=== PATIENT | female | born 1975 | race Caucasian/White ===

== ENCOUNTER 2016-12-13 11:18 | Emergency (ER) ==
[2016-12-13 11:28] VITALS: BP 128/82; TEMP 96.5; BMI 24.2
[2016-12-13] MEDS ORDERED: GI COCKTAIL PO STA (11:37)
--- NOTE | 2016-12-13 11:40 | ED.PDOC ---
General ED Provider: Dr. MIL BRAY Chief Complaint: Abdominal Pain Stated Complaint: Was hurting in the upper stomach, had 2 episodes, has h/o gall stones Time Seen by Physician: 11:38 Mode of Arrival: Walk-In Information Source: Patient Primary Care Provider: LENARD BEAULIEU Nursing and Triage Documentation Reviewed and Agree: Yes GI Complaint Exam - Abdominal Pain Complaint/Exam Onset: Gradual Symptoms Are: Still present Initial Severity: Moderate Current Severity: Moderate Location of Pain: Diffuse Character: Reports: Dull, Burning Aggravating: Reports: Movement, Food Alleviating: Reports: None Associated Signs and Symptoms: Reports: Nausea. Denies: Diaphoresis, Fever, Cough, Chest pain, Dizziness, Back pain, Constipation, Blood in stool, Dysuria, Urinary frequency, Decreased urine output, Decreased appetite, Vaginal bleeding , Vaginal discharge, Vomiting, Diarrhea, Sore throat, Decreased activity Related History: Reports: Similar episode AAA Risk Factors: Reports: None Cardiac Risk Factors: Reports: None Ectopic Risk Factors: Reports: None Ovarian Torsion Risk Factors: Reports: None Surgical Obstruction Risk Factors: Reports: None Related Surgical History: Reports: None. Denies: Cholecystectomy, Appendectomy Abdominal Findings: Absent: Pulsatile mass, Abdominal distention, Unequal femoral pulses Differential Diagnoses: Pancreatitis, GB, PUD Review of Systems - Review Of Systems Constitutional: Reports: No symptoms Eyes: Reports: No symptoms Ears, Nose, Mouth, Throat: Reports: No symptoms Respiratory: Reports: No symptoms Cardiac: Reports: No symptoms GI: Reports: Abdominal pain : Reports: No symptoms Musculoskeletal: Reports: No symptoms Skin: Reports: No symptoms Neurological: Reports: No symptoms Endocrine: Reports: No symptoms Hematologic/Lymphatic: Reports: No symptoms All Other Systems: Reviewed and Negative Past Medical History - Past Medical History Previously Healthy: No Endocrine: Reports: None Cardiovascular: Reports: None Respiratory: Reports: None Hematological: Reports: None Gastrointestinal: Reports: None Genitourinary: Reports: None Neuro/Psych: Reports: None Musculoskeletal: Reports: None Cancer: Reports: None Last Menstrual Period: 11/27/16 - Surgical History General Surgical History: Reports: Tubal ligation - Family History Family History: Reports: None - Social History Smoking Status: Heavy tobacco smoker Smoking Cessation Counseling Time: > 10 min Hx Substance Use: No Alcohol Screening: Occasionally - Immunizations Tetanus Shot up to Date: No Physical Exam - Physical Exam Appearance: Well-appearing, No pain distress, Well-nourished Eyes: LUCRECIA, EOMI, Conjunctiva clear ENT: Ears normal, Nose normal, Oropharynx normal Respiratory: Airway patent, Breath sounds clear, Breath sounds equal, Respirations nonlabored Cardiovascular: RRR, Pulses normal, No rub, No murmur GI/: Soft, Tender (epigastric) Musculoskeletal: Normal strength, ROM intact, No edema, No calf tenderness Skin: Warm, Dry, Normal color Neurological: Sensation intact, Motor intact, Reflexes intact, Cranial nerves intact, Alert, Oriented Psychiatric: Affect appropriate, Mood appropriate Interpretation - Radiology Interpretation Radiology Interpretation By: Radiologist Radiology Results: Positive Exam Interpreted: CT Scan Critical Care Note - Critical Care Note Total Time (mins): 0 Course - Course Hematology/Chemistry: 12/13/16 11:40 12/13/16 11:40 Orders, Labs, Meds: Lab Review 12/13/16 12/13/16 11:40 12:25 WBC 9.39 RBC 4.70 Hgb 14.7 Hct 42.9 MCV 91.3 MCH 31.3 H MCHC 34.3 RDW Coeff of Cal 12.8 Plt Count 337 Immature Gran % (Auto) 0.3 Neut % (Auto) 70.9 Lymph % (Auto) 21.1 [place] % (Auto) 6.3 Eos % (Auto) 1.1 Baso % (Auto) 0.3 Immature Gran # (Auto) 0.0 Neut # 6.7 Lymph # 2.0 [place] # 0.6 Eos # 0.1 Baso # 0.0 Sodium 139 Potassium 4.0 Chloride 103 Carbon Dioxide 25 Anion Gap 15.0 BUN 9 Creatinine 0.75 Estimated GFR (MDRD) 86.00 BUN/Creatinine Ratio 12.00 Glucose 95 Calcium 9.7 Total Bilirubin 0.30 AST 64 H ALT 36 Alkaline Phosphatase 93 Total Protein 7.3 Albumin 4.1 Globulin 3.2 Albumin/Globulin Ratio 1.28 Amylase 31 Lipase 66 Urine Test Negative Orders Category Date Time Status AMYLASE Stat LAB 12/13/16 11:40 Completed CBC W/ AUTO DIFF Stat LAB 12/13/16 11:40 Completed COMPREHENSIVE METABOLIC PANEL Stat LAB 12/13/16 11:40 Completed LIPASE Stat LAB 12/13/16 11:40 Completed URINE Stat LAB 12/13/16 12:25 Completed Mag-Al Plus//Lidocaine [Gi Cocktail] MEDS 12/13/16 11:37 Discontinued 30 ml PO ONCE STA CT ABDOMEN/PELVIS WO CONTRAST Stat RADS 12/13/16 11:37 Taken Medications Discontinued Medications Generic Name Dose Route Start Last Admin Trade Name Kayla PRN Reason Stop Dose Admin Al Hydroxide/Mg Hydroxide 30 ml 12/13/16 11:37 12/13/16 12:13 Gi Cocktail PO 12/13/16 11:38 30 ml ONCE STA Administration Vital Signs: Temp Pulse Resp BP Pulse Ox 12/13/16 11:21 96.5 F L 62 16 128/82 97 Departure - Departure Time of Disposition: 13:01 Disposition: HOME SELF-CARE Discharge Problem: Abdominal pain Cholelithiasis Qualifiers: Cholelithiasis location: gallbladder Cholecystitis presence: without cholecystitis Biliary obstruction: without biliary obstruction Qualifier Code: ( K80.20) Calculus of gallbladder without cholecystitis without obstruction Instructions: Peptic Ulcer (ED), Gallstones (ED) Condition: Stable Pt referred to PMD for follow-up: Yes Additional Instructions: Needs out patient evaluation with U/S discussed the findings with patient f/u at [facility] Prescriptions: Ranitidine HCl [Zantac] 150 mg PO BIDAC #20 tablet Allergies/Adverse Reactions: Allergies No Known Allergies Allergy (Unverified 12/13/16 11:29) Home Medications: Ambulatory Orders Metoprolol Tartrate [Lopressor] 25 mg PO DAILY 12/13/16 Ranitidine HCl [Zantac] 150 mg PO BIDAC #20 tablet 12/13/16 Disposition Discussed With: Patient
[2016-12-13 11:51] LABS: BASOPHILS % (AUTO) 0.3 % (0.0-3.0); EOSINOPHILS # (AUTO) 0.1 K/ul (0.0-0.7); EOSINOPHILS % (AUTO) 1.1 % (0.0-7.0); HEMATOCRIT 42.9 % (37.0-47.0); HEMOGLOBIN 14.7 g/dl (12.0-16.0); IMMATURE GRANULOCYTE % (AUTO) 0.3 % (0.0-5.0); LYMPHOCYTES % (AUTO) 21.1 (10.0-50.0); MEAN CORPUSCULAR HEMOGLOBIN 31.3 pg (27.0-31.0); MEAN CORPUSCULAR HGB CONC 34.3 (31.8-35.4); MEAN CORPUSCULAR VOLUME 91.3 fl (81.0-99.0); MONOCYTES # (AUTO) 0.6 K/uL (0.4-2.0); MONOCYTES % (AUTO) 6.3 (0-10); NEUTROPHILS # (AUTO) 6.7 K/ul (2.0-6.9); NEUTROPHILS % (AUTO) 70.9; PLATELET COUNT 337 10^3/uL (140-440); WHITE BLOOD COUNT 9.39 K/ul (4.6-10.2)
[2016-12-13 12:11] LABS: ALBUMIN 4.1 g/dL (3.4-5.0); ALBUMIN/GLOBULIN RATIO 1.28; BILIRUBIN,TOTAL 0.3 mg/dL (0.00-1.20); CALCIUM 9.7 mg/dL (8.2-10.2); CREATININE 0.75 mg/dL (0.60-1.30); TOTAL PROTEIN 7.3 g/dL (6.4-8.2)
[2016-12-13 12:33] LABS: URINE PREGNANCY INTERNAL QC INTERNAL QC VALID
--- NOTE | 2016-12-13 13:05 | CT ---
EXAM: CT of the abdomen and pelvis without contrast. HISTORY: Abdominal pain. COMPARISON: PET CT from 12/25/2014 TECHNIQUE: Contiguous axial images at 3 mm intervals were obtained from lung bases through the pelv is without contrast. Coronal and sagittal reformats were performed. FINDINGS: CHEST: The lung bases show no lobar consolidation or effusion. There is a calcified granuloma in t he right lung base. Also noted is some emphysematous changes. There is minimal scarring and/or ate lectasis. The heart size is within normal limits.There is no hiatal hernia. ABDOMEN: There is no free air free fluid. LIVER: There is no solid mass lesion or intrahepatic ductal dilatation. BILIARY: There are multiple gallstones which are stable. There is no acute inflammation seen. The common bile duct is normal. SPLEEN: The spleen is unremarkable. PANCREAS: The pancreas shows no mass lesion or peripancreatic inflammation. ADRENAL GLANDS: The adrenal glands are normal. RENAL: The kidneys show no hydronephrosis or nephrolithiasis. There are no obstructing ureteral st ones. No solid mass lesions are identified. There are no large cysts. RETROPERITONEUM: No aortic aneurysm is identified. Some atherosclerotic calcifications are seen. There is no retroperitoneal or mesenteric adenopathy. BOWEL: There is no obstruction or ileus. There is no bowel wall thickening, edema or mesenteric fat stranding. There is no free fluid or free air. PELVIS: No acute abnormality. BLADDER: There are no filling defects, no blood clots or stones. GENITOURINARY STRUCTURES: Unremarkable. OSSEOUS STRUCTURES: No acute osseous abnormalities. IMPRESSION: 1. Multiple gallstones which are unchanged compared to before. No definite acute inflammation is s een however. 2. Other miscellaneous findings as above. Report called to Dr. Mendez
== END 2016-12-13 13:40 | disposition home or self-care (01) ==
LOC: ED 11:18
DX: K80.20 Calculus of gallbladder without cholecystitis without obstruction (principal); F17.210 Nicotine dependence, cigarettes, uncomplicated
CPT/HCPCS: 36415; 80053; 81025; 82150; 83690; 85025; 99283